=== PATIENT | male | born 1950 | race Caucasian/White ===

== ENCOUNTER → 2023-09-30 06:25 | Day surgery (SDC) | payer MEDICARE, SELFPAY | LOC: GI 06:25 | PROVIDERS: ATTENDING PHYSICIAN Internal Medicine Gastroenterology | DX: Z12.11 Encounter for screening for malignant neoplasm of colon (principal); K57.30 Diverticulosis of large intestine without perforation or abscess without bleeding; K64.8 Other hemorrhoids; Z86.010 Personal history of colon polyps; Z80.0 Family history of malignant neoplasm of digestive organs | CPT/HCPCS: G0105 ==